=== PATIENT | female | born 1980 | race Caucasian/White ===

== ENCOUNTER 2020-04-20 12:44 | Emergency (ER) | payer BC, OTHER ==
[2020-04-20 13:04] VITALS: BP 151/85; PULSE 83
--- NOTE | 2020-04-20 14:00 | EDM.PDOC ---
ED HPI GENERAL MEDICAL PROBLEM - General Chief Complaint: General Stated Complaint: SWOLLEN FACE (L)SIDE Time Seen by Provider: 04/20/20 13:40 Source of Information: Reports: Patient, RN Notes Reviewed History Limitations: Reports: No Limitations - History of Present Illness INITIAL COMMENTS - FREE TEXT/NARRATIVE: Patient is a 39-year-old female who presents to the ED for evaluation of her left facial swelling. Patient notes she woke up this morning, and realized that her left cheek was a lot puffier than her right cheek. She thought maybe she could have been having an allergic reaction to a new make-up remover wipes she was last night however her right cheek was not inflamed. She took some ibuprofen and a Benadryl at around 7 AM, ibuprofen seemed to help quite a bit with the pain. She also notes that she may have issues with upper wisdom tooth that is been giving her issues for some time. She does not think she has a cavity. She notes that the face feels somewhat numb, the swelling goes up into her nose. She is been using ice packs on and off and nothing seems to be helping much with this. Patient denies any other sick-like symptoms, fever/chills, cough/shortness of breath, nausea/vomiting/diarrhea. Left Face/Facial Pain Score (Numeric/FACES): 0 - Related Data Allergies Allergy/AdvReac Type Severity Reaction Status Date / Time penicillin V Allergy Severe Anaphylactic Verified 04/20/20 13:05 Shock Home Meds: Home Meds Cetirizine HCl [Zyrtec] 10 mg PO DAILY 04/20/20 [History] Clindamycin HCl 300 mg PO TID 7 Days #23 capsule 04/20/20 [Rx] Fluticasone Propionate [Flonase Allergy Relief] 1 applic INH DAILY 04/20/20 [History] Lactobacillus Acidophilus [Probiotic] 1 cap PO DAILY 04/20/20 [History] Past Medical History - Past Health History Medical/Surgical History: Denies Medical/Surgical History HEENT History: Reports: Allergic Rhinitis, Other (See Below) Other HEENT History: seasonal allergies Cardiovascular History: Reports: Heart Murmur Gastrointestinal History: Reports: Chronic Constipation, Chronic Diarrhea, GERD Genitourinary History: Reports: UTI, Recurrent MARKETING COMPLIANCE MANAGER History: Reports: Spontaneous Other MARKETING COMPLIANCE MANAGER History: 4 misscarriage Musculoskeletal History: Reports: Other (See Below) Other Musculoskeletal History: hx lumbar sprain Neurological History: Reports: Migraines, Other (See Below) Other Neuro History: Douglas's palsy Psychiatric History: Reports: Anxiety, Depression, PTSD Other Endocrine/Metabolic History: hypoglycemia - Infectious Disease History Infectious Disease History: Reports: Shingles - Past Surgical History Female Surgical History: Reports: D&C Social & Family History - Family History Family Medical History: No Pertinent Family History Cardiac: Reports: CAD, Hypertension Endocrine/Metabolic: Reports: Diabetes, Type I - Tobacco Use Tobacco Use Status *Q: Never Tobacco User - Caffeine Use Caffeine Use: Reports: Coffee, Soda - Recreational Drug Use Recreational Drug Use: No - Living Situation & Occupation Living situation: Reports: Single Occupation: Employed ED ROS GENERAL - Review of Systems Review Of Systems: Comprehensive ROS is negative, except as noted in HPI. ED EXAM, GENERAL - Physical Exam Exam: See Below Exam Limited By: No Limitations General Appearance: Alert, WD/WN, No Apparent Distress Eye Exam: Bilateral Eye: EOMI, Normal Inspection, PERRL Head: Facial Swelling (to left cheek/upper jaw area.) Respiratory/Chest: No Respiratory Distress, Lungs Clear, Normal Breath Sounds, No Accessory Muscle Use, Chest Non-Tender Cardiovascular: Normal Peripheral Pulses, Regular Rate, Rhythm, No Edema Extremities: Normal Inspection, Normal Capillary Refill Neurological: Alert, Oriented, Normal Cognition, No Motor/Sensory Deficits Psychiatric: Normal Affect, Normal Mood Skin Exam: Warm, Dry, Intact, Normal Color, No Rash Course - Vital Signs Last Recorded V/S: Last Vital Signs Temp 98.9 F 04/20/20 13:04 Pulse 83 04/20/20 13:04 Resp 20 04/20/20 13:04 BP 151/85 H 04/20/20 13:04 Pulse Ox 100 04/20/20 13:04 - Re-Assessments/Exams Free Text/Narrative Re-Assessment/Exam: 04/20/20 13:55 Patient presents to the ED for the evaluation of her left facial swelling. It does appear she has an infected tooth causing issues. We will get her started on clindamycin and have her follow-up with a dentist for definitive management. Patient is amenable to this plan. Departure - Departure Time of Disposition: 13:55 Disposition: Home, Self-Care 01 Condition: Good Clinical Impression: Dental abscess - Discharge Information *PRESCRIPTION DRUG MONITORING PROGRAM REVIEWED*: No *COPY OF PRESCRIPTION DRUG MONITORING REPORT IN PATIENT TONNY: No Prescriptions: Clindamycin HCl 300 mg PO TID 7 Days #23 capsule Instructions: Dental Abscess, [id number] Referrals: Bambi Kendrick NP [Primary Care Provider] - Additional Instructions: You have been evaluated in the ED for your dental pain. You have been provided with a script for clindamycin. Please take this medication as directed. (2 tabs for first dose, then 1 tab TID for 7 days or until gone). Please note this antibiotic can take up to 48 hours to provide coverage. If you do not notice an improvement in the swelling within 3 days time I recommend you seek care for reevaluation for change in antibiotics. This antibiotic can cause diarrhea, recommend that you start a probiotic while taking this medication. Aleve provides good pain relief for dental pain. Please take 1-2 tabs twice daily as needed for pain. If you do not want to take Aleve, you may try 600mg Ibuprofen Q6H PRN. You may use hot pack/ ice packs to the affected area as tolerated in 15-20 minute intervals. You will ultimately need to find a dentist to provide definitive management of your dental pain. The [facility] in [place], [place], , is a clinic that has been known to take people that do not have dental insurance, and may provide payment plans. You might want to check with this provider, regarding your dental pain. Please return to the ED if your symptoms change or worsen. Sepsis Event Note (ED) - Evaluation Sepsis Screening Result: No Definite Risk - Focused Exam Vital Signs: Vital Signs Temp Pulse Resp BP Pulse Ox 04/20/20 13:04 98.9 F 83 20 151/85 H 100
== END 2020-04-20 14:12 | disposition home or self-care (01) ==
LOC: JD.ED 12:44
DX: K04.7 Periapical abscess without sinus (principal); Z88.0 Allergy status to penicillin
CPT/HCPCS: 99283